=== PATIENT | male | born 1935 | race Caucasian/White ===

== ENCOUNTER 2021-04-18 00:59 | Day surgery (SDC) | payer MEDICARE, SELFPAY ==
[2021-04-17 13:47] VITALS: BMI 29.2
[2021-04-18] VITALS (16 sets, daily range): BP systolic 104–146; BP diastolic 49–88; PULSE 62–78; RESP 12–26; TEMP 36.6–36.9; O2SAT 69–98; BMI 43.8
[2021-04-18 09:16] LABS: Basophils Percent Auto 0.4 % (0.2-1.2); Eosinophils Absolute Auto 0.3 K/mm3 (0-0.3); Eosinophils Percent Auto 3.8 % (0-4.4); Hematocrit 38.4 % (42.0-52.0); Hemoglobin 13.4 g/dL (14.0-18.0); Immature Granulocyte Absolute 0.02 K/mm3 (0.00-0.031); Immature Granulocyte Percent A 0.3 % (0-0.5); Lymphocytes Absolute Auto 2.22 K/mm3 (0.9-3.2); Lymphocytes Percent Auto 28.2 % (18.3-44.2); Mean Corpuscular HGB Conc 34.9 g/dl (32-36); Mean Corpuscular Hemoglobin 33.6 pg (26-34); Mean Corpuscular Volume 96.2 fl (80-100); Mean Platelet Volume 9.2 fl (7.4-10.4); Monocytes Absolute Auto 0.7 K/mm3 (0.1-0.6); Monocytes Percent Auto 8.3 % (2.6-8.5); Neutrophils Absolute Auto 4.6 K/mm3 (1.3-6.7); Platelet Count Result 248 k/mm3 (150-375); Red Blood Count 3.99 M/mm3 (4.6-6.20); Red Cell Distribution Width 12.5 % (11.5-14.5); White Blood Count 7.9 K/mm3 (4.5-10.0)
[2021-04-18 09:23] LABS: Anion Gap 8 mmol/L (8-16); Blood Urea Nitrogen 26 mg/dL (9-20); Calcium 9.5 mg/dL (8.4-10.2); Carbon Dioxide 26 mmol/L (22-30); Chloride 97 mmol/L (98-107); Estimated CRCL calculation 57 ml/min; Estimated Glomerular Filt Rate 58; Glucose 112 mg/dL (65-110); Potassium 4.4 mmol/L (3.4-5.0); Sodium 131 mmol/L (137-145)
--- NOTE | 2021-04-18 10:18 | WPDMODSED ---
Moderate Sedation Note-Pt Data Patient Data Diagnosis: Coronary artery disease with previous CABG morbid obesity exertional dyspnea abnormal nuclear stress test Present Complaint: exertional shortness of breath Procedure to be performed/Plan: left heart catheterization Allergies Allergy/AdvReac Type Severity Reaction Status Date / Time clopidogrel Allergy Hives Verified 04/18/21 08:54 lisinopril Allergy Cough Verified 04/18/21 08:54 morphine Allergy Nausea and Verified 04/18/21 08:54 Vomiting Home Medications Medication Instructions Recorded Confirmed Type aspirin 81 mg PO DAILY 04/17/21 04/18/21 History atorvastatin 40 mg PO DAILY 04/17/21 04/18/21 History azilsartan med-chlorthalidone 1 tablet PO DAILY 04/17/21 04/17/21 History [Edarbyclor] cholecalciferol (vitamin D3) 5,000 unit PO DAILY 04/17/21 04/18/21 History [Vitamin D3] doxycycline hyclate 40 mg PO DAILY 04/17/21 04/18/21 History famotidine [Pepcid] 20 mg PO BID 04/17/21 04/17/21 History omega-3 fatty acids [[place] 3] 1,000 mg PO DAILY 04/17/21 04/18/21 History pregabalin 75 mg PO BID 04/17/21 04/17/21 History sertraline 50 mg PO DAILY 04/17/21 04/17/21 History tamsulosin 0.4 mg PO DAILY 04/17/21 04/18/21 History Current Medications: Active Medications Sodium Chloride (Normal Saline Iv) 500 mls @ 100 mls/hr IV CONT .Q5H KAREN Sedation/Anesthesia: No previous sedation/anesthesia problems (including family history). [facility] Family History Family History (Updated 06/05/16 @ 23:56 by DOCTOR UNKNOWN) Mother Hypertension, Onset Age: 85 Family history of heart disease in male family member before age 55, Onset Age: 85 Patient's mother is Social History Social History Smoking status: Never smoker Second hand tobacco smoke exposure: No Alcohol intake: current Drinks per week: 1 Substance use: never Living arrangements: with family Additional living arrangements comments: lives with Spiritual care concerns: No Mod Sed Physical Exam Physical Exam Pre Procedural Exam: Normal: Neck, Throat, Airway, Lungs, Heart Rate, Heart Rhythm, Neuro Exam and Extremities and Variation: Appearance ( morbidly obese man no distress) and Heart Size ( PMI not palpable) Hours since solid foods: 12 Hours since liquid intake: 12 Mallampati Classification: class II Internal Medicine - PN: Obj Da Vital Signs Vital Signs: Vital Signs - 24 hr 04/18/21 09:00 Temperature 36.7 C Respiratory Rate 12 Pulse Oximetry 97 Meds/Results Medications: Active Medications Generic Name Dose Route Start Last Admin Trade Name Freq PRN Reason Stop Dose Admin Sodium Chloride 500 mls @ 100 mls/hr 04/18/21 08:30 Normal Saline Iv IV CONT .Q5H KAREN Labs CBC & Chem 7: 04/18/21 08:52 04/18/21 08:52 Labs: Laboratory Results - last 24 hr 04/18/21 04/18/21 08:52 08:52 WBC 7.9 RBC 3.99 L Hgb 13.4 L Hct 38.4 L MCV 96.2 MCH 33.6 MCHC 34.9 RDW 12.5 Plt Count 248 MPV 9.2 Immature Gran % (Auto) 0.3 Neut % (Auto) 59.0 Lymph % (Auto) 28.2 [place] % (Auto) 8.3 Eos % (Auto) 3.8 Baso % (Auto) 0.4 Lymph # (Auto) 2.22 Dillon # (Auto) 0.7 H Eos # (Auto) 0.3 Baso # (Auto) 0.0 Abs Immat Gran (auto) 0.02 Absolute Neuts (auto) 4.6 Absolute Nucleated RBC 0.0 Nucleated RBC % 0.0 Sodium 131 L Potassium 4.4 Chloride 97 L Carbon Dioxide 26 Anion Gap 8 BUN 26 H Creatinine 1.20 Estim Creat Clear Calc 57 Estimated GFR 58 L Glucose 112 H Calcium 9.5 ASA Classification/Sedation ASA Classification/Sedation ASA Class: III Emergent: No Risks: Risks, benefits and alternatives explained and patient/family accepted plan for sedation. Patient re-evaluated immediately prior to sedation.
--- NOTE | 2021-04-18 10:20 | PM.IMHP ---
H&P: HPI History of Present Illness Date/Time: 04/18/21 10:20 Chief Complaint: exertional dyspnea Narrative: this is a 85-year-old man with a history of coronary artery disease who underwent surgical revascularization back in November of 2014. He presented to the hospital at that time with atypical ischemic symptoms. Multivessel coronary disease was identified angiographically he was transferred to [facility] for surgical revascularization. He received a multivessel bypass operation clearly an ANNA graft to the LAD, a saphenous vein graft to OM1, a saphenous vein graft to the diagonal with a T graft to another OM branch and a radial artery graft to the RPL. The patient has done relatively well since then. He has been following with my partner, Dr. Painting for the interval years. Recent office visit indicates he was complaining of worsening of chronic shortness of breath. He has had some shortness of breath chronically which is attributed to morbid obesity. Because of his symptoms a nuclear stress test was done which is interpreted as showing a mild anterior ischemic defect. For this reason a follow-up angiogram has now been recommended for today. Review of Systems Constitutional: Constitutional: Reports no additional constitutional complaints Eyes: Eyes: Reports no additional eye complaints ENT: Reports system reviewed and no additional complaints, except as documented Cardiovascular: Cardiovascular: Reports as per HPI Respiratory: Respiratory: Reports dyspnea on exertion Gastrointestinal: Gastrointestinal: Reports no additional gastrointestinal complaints Musculoskeletal: Musculoskeletal: Reports no additional musculoskeletal complaints Integumentary/Breasts: Skin/Breast: Reports system reviewed and no additional complaints, except as docu Neurologic: Reports system reviewed and no additional complaints, except as documented [facility] Family History Family History (Updated 06/05/16 @ 23:56 by DOCTOR UNKNOWN) Mother Hypertension, Onset Age: 85 Family history of heart disease in male family member before age 55, Onset Age: 85 Patient's mother is Social History Social History Smoking status: Never smoker Second hand tobacco smoke exposure: No Alcohol intake: current Drinks per week: 1 Substance use: never Living arrangements: with family Additional living arrangements comments: lives with Spiritual care concerns: No Meds Home Medications and Allergies Home Medications Medication Instructions Recorded Confirmed Type aspirin 81 mg PO DAILY 04/17/21 04/18/21 History atorvastatin 40 mg PO DAILY 04/17/21 04/18/21 History azilsartan med-chlorthalidone 1 tablet PO DAILY 04/17/21 04/17/21 History [Edarbyclor] cholecalciferol (vitamin D3) 5,000 unit PO DAILY 04/17/21 04/18/21 History [Vitamin D3] doxycycline hyclate 40 mg PO DAILY 04/17/21 04/18/21 History famotidine [Pepcid] 20 mg PO BID 04/17/21 04/17/21 History omega-3 fatty acids [[place] 3] 1,000 mg PO DAILY 04/17/21 04/18/21 History pregabalin 75 mg PO BID 04/17/21 04/17/21 History sertraline 50 mg PO DAILY 04/17/21 04/17/21 History tamsulosin 0.4 mg PO DAILY 04/17/21 04/18/21 History Allergies Allergy/AdvReac Type Severity Reaction Status Date / Time clopidogrel Allergy Hives Verified 04/18/21 08:54 lisinopril Allergy Cough Verified 04/18/21 08:54 morphine Allergy Nausea and Verified 04/18/21 08:54 Vomiting Vital Signs Vital Signs - 24 hr 04/18/21 09:00 Temperature 36.7 C Respiratory Rate 12 Pulse Oximetry 97 Exam Const: General: comfortable and no acute distress Other: Pleasant morbidly obese gentleman resting comfortably in no distress HENMT: Mouth: Yes moist mucous membranes Eyes: Sclera: sclerae normal Pupils: Equal, round and reactive pupils present Neck: Neck: supple Carotids: bruit Other: difficult to assess JVD given his body habitus Resp: Effort
--- NOTE | 2021-04-18 11:35 | WPDCARDPROC ---
Cardiac Cath Procedure Note Date of procedure:: 04/18/21 Performing physician:: Chase Woods MD Indication:: coronary artery disease with previous CABG exertional dyspnea morbid obesity abnormal stress test Brief clinical history:: this is an 85-year-old man who underwent coronary bypass grafting in 2014 for treatment of multivessel coronary disease. He has been reporting symptoms of shortness of breath. It should be noted that he is morbidly obese. A nuclear stress test was reported as showing evidence of mild anterior ischemia. This would call into question the ANNA graft to his LAD. Follow-up angiography has been recommended in this setting. Procedure Procedure performed:: Left ventriculogram coronary angiogram saphenous vein graft angiogram radial artery graft angiogram internal mammary graft angiogram aortic root injection Sedation/Medication given:: no sedation given case start time 10:27 a.m. case end time 10:31 a.m. Access site:: right femoral artery Estimated blood loss:: 50 cc Procedure note:: patient was brought to the cardiac catheterization lab in the postabsorptive state the right femoral triangle was prepared and draped in the usual fashion. The femoral artery was then punctured using the modified Seldinger technique and a 5 German vascular sheath was placed. The vascular access was somewhat challenging because of morbid obesity. Five German angled pigtail catheter was then used to demonstrate left-sided hemodynamics and to inject LV g in the SANCHEZ projection. After this I used a 5 German FL4 catheter to engage and inject the left coronary artery. The right coronary artery was engaged injected using of 5 German JR4 catheter. The JR4 catheter was then used to engage the radial artery graft to the RCA. I then study the OSCAR graft to the LAD. Injected the OSCAR was difficult and challenging. The ANNA ostium has a somewhat unusual takeoff from the subclavian artery. Ultimately that was thus was injected is slightly non selectively with the catheter close to the ANNA ostium and a blood pressure cuff inflated on the left arm above systolic blood pressure. Following this I engaged and injected the saphenous vein graft selectively to OM and diagonal using a AL1 catheter. I used this catheter as well as the LCB catheter and could not find the last vein graft which is apparently another saphenous vein to additional marginal. For this reason I then placed the pigtail catheter back in the aortic root and performed an aortic root injection. Following this the case was terminated. An angiogram was done of the femoral artery through the sheath at which time I determined to pull the catheter manually. He was hypertensive and he was given 20 mg of IV labetalol at the conclusion of the case prior to sheath removal. Procedure was otherwise well tolerated and uncomplicated. Findings:: Hemodynamics: Central aortic pressure is 194 over 82 left ventricle 194/8 end-diastolic pressure 24. There was no gradient on pullback across the aortic valve. left ventricle: The left ventricle is of normal size there is concentric hypertrophy noted and hyperdynamic systolic function with an ejection fraction of visually estimated to be 75%. The left main coronary artery is medium in caliber and patent. The left anterior descending is medium caliber vessel. There is 99% subtotal stenosis just after the ostium. There is antegrade filling of a very small septal branch after which the LAD itself is 100% occluded. The circumflex is a medium caliber vessel. Wears mild diffuse disease in the trunk of the circumflex. There is 95% stenosis of the 1st OM branch with competitive filling that is seen in this vessel with a patent graft. The 2nd OM branch is a medium-sized vessel that has about 60-70% stenosis in the midportion. There is no competitive filling of this graft seen. The right coronary artery is large in caliber and was do
== END 2021-04-18 17:38 | disposition home or self-care (01) ==
PROVIDERS: PCP Family Medicine; Visit Provider Specialist
PROC: 4A023N7 Measurement of Cardiac Sampling and Pressure, Left Heart, Percutaneous Approach (ICD-10-PCS; CPT 93459; principal; 2021-04-18 10:00)
DX: I25.10 Atherosclerotic heart disease of native coronary artery without angina pectoris (principal); Z95.1 Presence of aortocoronary bypass graft; R06.09 Other forms of dyspnea; Z79.82 Long term (current) use of aspirin; R06.02 Shortness of breath; Z82.49 Family history of ischemic heart disease and other diseases of the circulatory system; E66.01 Morbid (severe) obesity due to excess calories; Z68.41 Body mass index [BMI] 40.0-44.9, adult
CPT/HCPCS: 36415; 80048; 85025; 93459; C1769; C1887; C1894; J0461; J1644; J2250; J3010; J7040